=== PATIENT | male | born 1955 | race Hispanic/Latino ===

== ENCOUNTER 2017-05-24 16:14 | Observation (INO) | payer BC, OTHER ==
--- NOTE | 2017-05-24 16:50 | ED PDOC ---
HPI: Chest Pain Time Seen by Provider: 05/24/17 16:27 Chief Complaint (Nursing): Chest Pain Chief Complaint (Provider): "chest heaviness, shortness of breath" History Per: Patient History/Exam Limitations: no limitations Onset/Duration Of Symptoms: Days (4-5), Intermittent Episodes, Gradual Current Symptoms Are (Timing): Still Present Severity: Moderate Quality: Tightness, Other (heaviness) Associated Symptoms: Dyspnea. denies: Nausea, Diaphoresis Exacerbating Factors: Movement, Deep Breathing, Exertion Alleviating Factors: None Additional Complaint(s): 62yo male hx multiple medical problems including CAD s/p multiple stents presents c/o central chest pain/ "heaviness" associated with SOB/orthopnea and mild cough and dizziness. He states he did research online and concerned about his kidneys, notes his legs have been swollen for months to years, sleeps mostly sitting up as easier to breath that way. 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) - Home Medications Home Medications: Ambulatory Orders Medication Instructions Recorded Aspirin [Ecotrin] 81 mg PO DAILY 05/24/17 Atorvastatin [Lipitor] 40 mg PO DAILY 05/24/17 Fluticasone/Vilanterol [Breo 1 puff IH DAILY 05/24/17 Ellipta 200-25 Mcg INH] Furosemide [Lasix] 40 mg PO BID 05/24/17 Loratadine [Claritin] 10 mg PO DAILY 05/24/17 Metoprolol Succinate [Toprol XL] 25 mg PO DAILY 05/24/17 Potassium Chloride [K-Dur 20 mEq 20 meq PO BID 05/24/17 ER Tab] - Allergies Allergies/Adverse Reactions: Allergies Allergy/AdvReac Type Severity Reaction Status Date / Time Penicillins Allergy RASH Verified 05/24/17 16:18 Review of Systems ROS Statement: Except As Marked, All Systems Reviewed And Found Negative Constitutional: Positive for: Weakness. Negative for: Fever, Chills Cardiovascular: Positive for: Chest Pain, Palpitations, Orthopnea, Light Headedness Respiratory: Positive for: Cough, Shortness of Breath, SOB with Exertion Gastrointestinal: Negative for: Nausea, Vomiting, Abdominal Pain Genitourinary Male: Negative for: Dysuria, Frequency Musculoskeletal: Negative for: Neck Pain, Back Pain Skin: Negative for: Rash, Lesions, Jaundice Neurological: Positive for: Dizziness. Negative for: Weakness, Numbness Psych: Negative for: Anxiety Physical Exam - Reviewed Nursing Documentation Reviewed: Yes Vital Signs Reviewed: Yes - Physical Exam Appears: Positive for: Non-toxic (obese), No Acute Distress Head Exam: Positive for: ATRAUMATIC, NORMAL INSPECTION, NORMOCEPHALIC Skin: Positive for: Normal Color, Warm, DRY Eye Exam: Positive for: EOMI, Normal appearance, PERRL ENT: Positive for: Normal ENT Inspection Neck: Positive for: Normal, Painless ROM Cardiovascular/Chest: Positive for: Regular Rate, Rhythm Respiratory: Positive for: CNT, Normal Breath Sounds Gastrointestinal/Abdominal: Positive for: Bowel Sounds, Soft. Negative for: Tenderness, Guarding Back: Positive for: Normal Inspection Extremity: Positive for: Normal ROM, Swelling (b/l 3+ nonpitting edema) Neurologic/Psych: Positive for: Alert, Oriented - Laboratory Results Result Diagrams: 05/24/17 17:03 05/24/17 17:03 - ECG O2 Sat by Pulse Oximetry: 94 Medical Decision Making Medical Decision Making: workup initiated for chest pain with evidence of nonpitting LE edema Labs, CXR, LE duplex ordered CXR reviewed, +cardiomegaly per radiologist, atelectasis labs reviewed, trop neg, BNP normal Patient had persistent symptoms, recommended Obs tele admission d/w Dr Le covering [facility], arrangements made for obs admission. ASA ordered. Disposition - Clinical Impression Clinical Impression: Acute chest pain - Patient ED Disposition Is Patient to be Admitted: Yes - Disposition Disposition Time: 19:00 Condition: STABLE - Pt Status Changed To: Hospital Disposition Of: Observation - POA Present On Arrival: None
--- NOTE | 2017-05-24 17:08 | RAD ---
HISTORY: SOB COMPARISON: Chest x-ray performed 08/15/14 TECHNIQUE: Chest PA and lateral FINDINGS: Examination limited by habitus. LUNGS: Mild bibasilar atelectasis. No focal consolidation. Please note that chest x-ray has limited sensitivity for the detection of pulmonary masses. PLEURA: No significant pleural effusion identified. No definite pneumothorax . CARDIOVASCULAR: Cardiomegaly. OSSEOUS STRUCTURES: Osseous demineralization. Degenerative changes. Left 7th through 9th chronic appearing rib fractures. VISUALIZED UPPER ABDOMEN: Elevation of the right hemidiaphragm. OTHER FINDINGS: None. IMPRESSION: Mild bibasilar atelectasis. Cardiomegaly. Left 7th through 9th chronic appearing rib fractures.
[2017-05-24 17:10] LABS: BASO # 0.1 K/uL (0.0-0.2); BASO % 1.7 % (0.0-2.0); EOS # 0.2 K/uL (0.0-0.7); EOS % 2.8 % (0.0-4.0); HEMATOCRIT 42.8 % (35.0-51.0); LYMPH % 25.3 % (20.0-40.0); MEAN CELL VOLUME 90.5 fl (80.0-94.0); MEAN CORPUSCULAR HEMOGLOBIN 30.2 pg (27.0-31.0); MEAN CORPUSCULAR HGB CONC 33.4 g/dL (33.0-37.0); MEAN PLATELET VOLUME 8.7 fl (7.2-11.7); MONO # 0.6 K/uL (0.0-0.8); NEUT % 62.2 % (50.0-75.0); NRBC % 0.1 % (0.0-0.0); RED CELL DISTRIBUTION WIDTH 15.8 % (11.5-14.5); WHITE BLOOD COUNT 8.1 K/uL (4.8-10.8)
[2017-05-24 17:21] LABS: ALB/GLOB RATIO 1.3 (1.0-2.1); ALCOHOL SERUM < 10 mg/dl (0-10); ALKALINE PHOSPHATASE 61 U/L (38-126); ALT/SGPT 195 U/L (21-72); AST/SGOT 98 U/L (17-59); BILIRUBIN,TOTAL 0.5 mg/dl (0.2-1.3); BLOOD UREA NITROGEN 30 mg/dl (9-20); CALCIUM 10.4 mg/dL (8.4-10.2); CARBON DIOXIDE 26 mmol/L (22-30); CHLORIDE 106 mmol/L (98-107); GFR AFRICAN-AMERICAN > 60; GLUCOSE,RANDOM 117 mg/dL (75-110); PARTIAL THROMBOPLASTIN TIME 30.1 Seconds (25.6-37.1); POTASSIUM 4.2 MMOL/L (3.6-5.0); SODIUM 144 mmol/l (132-148); TOTAL PROTEIN 8.2 G/DL (6.3-8.2)
[2017-05-25 02:30] VITALS: TEMP 98
[2017-05-25 09:41] VITALS: RESP 16
--- NOTE | 2017-05-25 10:52 | US ---
PROCEDURE: Bilateral lower extremity venous duplex Doppler. HISTORY: LE edema COMPARISON: None available. TECHNIQUE: Bilateral common femoral, superficial femoral, popliteal and posterior tibial veins were evaluated. Flow was assessed with color Doppler, compressibility, assessment of phasic flow and augmentation response. FINDINGS: COMMON FEMORAL VEIN: Right CFV: Unremarkable. Left CFV: Unremarkable. SUPERFICIAL FEMORAL VEIN: Right SFV: Unremarkable. Left SFV: Unremarkable. POPLITEAL VEIN: Right Popliteal: Unremarkable. Left Popliteal: Unremarkable. POSTERIOR TIBIAL VEIN: Right PTV: Unremarkable. Left PTV: Unremarkable. OTHER FINDINGS: None. IMPRESSION: No evidence of deep vein or superficial vein thrombosis.
--- NOTE | 2017-05-25 11:10 | CP.PCM.HP ---
History of Present Illness - History of Present Illness History of Present Illness: 62yo male hx multiple medical problems including CAD s/p multiple stents presents c/o central chest pain/ "heaviness" associated with SOB/orthopnea and mild cough and dizziness. He states he did research online and concerned about his kidneys, notes his legs have been swollen for months to years, sleeps mostly sitting up as easier to breath that way. 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 Present on Admission - Present on Admission Any Indicators Present on Admission: Yes Review of Systems - Cardiovascular Cardiovascular: Chest Pain, Diaphoresis, Dyspnea. absent: As Per HPI, Acrocyanosis, Chest Pain at Rest, Chest Pain with Activity, Claudication, Dyspnea on Exertion, Edema, Irregular Heart Rhythm, Pain Radiating to Arm/Neck/ Jaw, Leg Edema, Leg Ulcers, Lightheadedness, Orthopnea, Palpitations, Paroxysmal Nocturnal Dyspnea, Pedal Edema, Radiating Pain, Rapid Heart Rate, Slow Heart Rate, Syncope, Other - Respiratory Respiratory: absent: As Per HPI, Cough, Dyspnea, Hemoptysis, Dyspnea on Exertion , Wheezing, Snoring, Stridor, Pain on Inspiration, Chest Congestion, Excessive Mucous Production, Change in Mucous Color, Pain with Coughing, Other Past Patient History - Past Social History Smoking Status: Former Smoker - CARDIAC Hx Hypertension: Yes - PULMONARY Hx Asthma: Yes - NEUROLOGICAL Hx Seizures: No - HEMATOLOGICAL/ONCOLOGICAL Hx Human Immunodeficiency Virus (HIV): No - GENITOURINARY/GYNECOLOGICAL Hx Sexually Transmitted Disorders: No - PSYCHIATRIC Hx Depression: Yes Hx Substance Use: No Meds Allergies/Adverse Reactions: Allergies Allergy/AdvReac Type Severity Reaction Status Date / Time Penicillins Allergy RASH Verified 05/24/17 16:18 Physical Exam - Head Exam Head Exam: ATRAUMATIC, NORMAL INSPECTION - Eye Exam Eye Exam: Normal appearance Pupil Exam: NORMAL ACCOMODATION - ENT Exam ENT Exam: Mucous Membranes Moist - Respiratory Exam Respiratory Exam: Decreased Breath Sounds, Clear to Auscultation Bilateral, Wheezes, NORMAL BREATHING PATTERN - Cardiovascular Exam Cardiovascular Exam: REGULAR RHYTHM - GI/Abdominal Exam GI & Abdominal Exam: Normal Bowel Sounds, Soft - Back Exam Back exam: NORMAL INSPECTION - Neurological Exam Neurological exam: CN II-XII Intact Results - Vital Signs Recent Vital Signs: Last Vital Signs Temp 98.0 F 05/25/17 07:30 Pulse 82 05/25/17 07:30 Resp 16 05/25/17 07:30 BP 145/79 05/25/17 07:30 Pulse Ox 99 05/25/17 07:30 - Labs Result Diagrams: 05/24/17 17:03 05/24/17 17:03 Labs: Laboratory Results - last 24 hr 05/24/17 05/24/17 05/24/17 17:03 17:03 17:03 WBC 8.1 RBC 4.73 Hgb 14.3 Hct 42.8 MCV 90.5 MCH 30.2 MCHC 33.4 RDW 15.8 H Plt Count 230 MPV 8.7 Neut % (Auto) 62.2 Lymph % (Auto) 25.3 [place] % (Auto) 8.0 Eos % (Auto) 2.8 Baso % (Auto) 1.7 Neut # 5.0 Lymph # 2.0 [place] # 0.6 Eos # 0.2 Baso # 0.1 PT 12.5 INR 1.1 APTT 30.1 Sodium 144 Potassium 4.2 Chloride 106 Carbon Dioxide 26 Anion Gap 16 BUN 30 H Creatinine 1.2 Est GFR ( Amer) > 60 Est GFR (Non-Af Amer) > 60 Random Glucose 117 H Calcium 10.4 H Total Bilirubin 0.5 AST 98 H ALT 195 H Alkaline Phosphatase 61 Troponin I < 0.0120 NT-Pro-B Natriuret Pep 45.4 Total Protein 8.2 Albumin 4.6 Globulin 3.6 Albumin/Globulin Ratio 1.3 Alcohol, Quantitative < 10 05/25/17 09:18 WBC RBC Hgb Hct MCV MCH MCHC RDW Plt Count MPV Neut % (Auto) Lymph % (Auto) [place] % (Auto) Eos % (Auto) Baso % (Auto) Neut # Lymph # [place] # Eos # Baso # PT INR APTT Sodium Potassium Chloride Carbon Dioxide Anion Gap BUN Creatinine Est GFR ( Amer) Est GFR (Non-Af Amer) Random Glucose Calcium Total Bilirubin AST ALT Alkaline Phosphatase Troponin I 0.0270 NT-Pro-B Natriuret Pep Total Protein Albumin Globulin Albumin/Globulin Ratio Alcohol, Quantitative Assessment & Plan - Assessment and Plan (Free Text) Assessment: 1. Chest pain r/o acs ekg noted pt sent by cardio 2. sob h/o asthma cont nebs 3. htn cont adrienne meds
[2017-05-25 11:11] VITALS: BP 136/84; PULSE 78
--- NOTE | 2017-05-25 11:17 | CP.PCM.DIS ---
Provider - Provider Date of Admission: 05/24/17 19:59 Attending physician: Cedric Schaefer MD Primary care physician: cedric schaefer MD Time Spent in preparation of Discharge (in minutes): 30 Hospital Course - Lab Results Lab Results: Most Recent Lab Values WBC 8.1 K/uL (4.8-10.8) 05/24/17 17:03 RBC 4.73 Mil/uL (4.40-5.90) 05/24/17 17:03 Hgb 14.3 g/dL (12.0-18.0) 05/24/17 17:03 Hct 42.8 % (35.0-51.0) 05/24/17 17: MCV 90.5 fl (80.0-94.0) 05/24/17 17: MCH 30.2 pg (27.0-31.0) 05/24/17 17: MCHC 33.4 g/dL (33.0-37.0) 05/24/17 17: RDW 15.8 % (11.5-14.5) H 05/24/17 17:03 Plt Count 230 K/uL (130-400) 05/24/17 17:03 MPV 8.7 fl (7.2-11.7) 05/24/17 17:03 Neut % (Auto) 62.2 % (50.0-75.0) 05/24/17 17:03 Lymph % (Auto) 25.3 % (20.0-40.0) 05/24/17 17:03 [place] % (Auto) 8.0 % (0.0-10.0) 05/24/17 17:03 Eos % (Auto) 2.8 % (0.0-4.0) 05/24/17 17:03 Baso % (Auto) 1.7 % (0.0-2.0) 05/24/17 17:03 Neut # 5.0 K/uL (1.8-7.0) 05/24/17 17:03 Lymph # 2.0 K/uL (1.0-4.3) 05/24/17 17:03 [place] # 0.6 K/uL (0.0-0.8) 05/24/17 17:03 Eos # 0.2 K/uL (0.0-0.7) 05/24/17 17:03 Baso # 0.1 K/uL (0.0-0.2) 05/24/17 17:03 PT 12.5 Seconds (9.8-13.1) 05/24/17 17:03 INR 1.1 (0.9-1.2) 05/24/17 17:03 APTT 30.1 Seconds (25.6-37.1) 05/24/17 17:03 Sodium 144 mmol/l (132-148) 05/24/17 17:03 Potassium 4.2 MMOL/L (3.6-5.0) 05/24/17 17:03 Chloride 106 mmol/L (98-107) 05/24/17 17:03 Carbon Dioxide 26 mmol/L (22-30) 05/24/17 17:03 Anion Gap 16 (10-20) 05/24/17 17:03 BUN 30 mg/dl (9-20) H 05/24/17 17:03 Creatinine 1.2 mg/dL (0.8-1.5) 05/24/17 17:03 Est GFR ( Amer) > 60 05/24/17 17:03 Est GFR (Non-Af Amer) > 60 05/24/17 17:03 Random Glucose 117 mg/dL (75-110) H 05/24/17 17:03 Calcium 10.4 mg/dL (8.4-10.2) H 05/24/17 17:03 Total Bilirubin 0.5 mg/dl (0.2-1.3) 05/24/17 17:03 AST 98 U/L (17-59) H 05/24/17 17:03 ALT 195 U/L (21-72) H 05/24/17 17:03 Alkaline Phosphatase 61 U/L (38-126) 05/24/17 17:03 Troponin I 0.0270 ng/mL (0.00-0.120) 05/25/17 09:18 NT-Pro-B Natriuret Pep 45.4 pg/ml (0-900) 05/24/17 17:03 Total Protein 8.2 G/DL (6.3-8.2) 05/24/17 17:03 Albumin 4.6 g/dL (3.5-5.0) 05/24/17 17:03 Globulin 3.6 gm/dL (2.2-3.9) 05/24/17 17:03 Albumin/Globulin Ratio 1.3 (1.0-2.1) 05/24/17 17:03 Alcohol, Quantitative < 10 mg/dl (0-10) 05/24/17 17:03 - Hospital Course Hospital Course: stable - Date & Time of H&P Date of H&P: 05/24/17 Discharge Exam - Head Exam Head Exam: ATRAUMATIC, NORMAL INSPECTION - Eye Exam Eye Exam: Normal appearance Pupil Exam: NORMAL ACCOMODATION - Respiratory Exam Respiratory Exam: NORMAL BREATHING PATTERN, UNREMARKABLE - Cardiovascular Exam Cardiovascular Exam: REGULAR RHYTHM - GI/Abdominal Exam GI & Abdominal Exam: Normal Bowel Sounds, Unremarkable - Rectal Exam Rectal Exam: NORMAL INSPECTION - Exam Exam: NORMAL INSPECTION - Extremities Exam Extremities exam: full ROM, normal inspection Discharge Plan - Follow Up Plan Condition: STABLE Disposition: HOME/ ROUTINE Additional Instructions: f/u cardio and pulm today
[2017-05-25 14:47] VITALS: O2SAT 94
[2017-05-25] MEDS ORDERED: Potassium Chloride 20 mEq ER Tab PO SCH (17:00)
--- NOTE | 2017-05-25 22:49 | CARD ---
APPROVED REPORT EKG Measurement Heart [id number] <Conclusion> Normal sinus rhythm Minimal voltage criteria for LVH, may be normal variant Cannot rule out Inferior infarct, age undetermined Abnormal ECG
[2017-05-26] MEDS ORDERED: Metoprolol Succinate 25 mg XL Tab PO SCH (09:00)
[2017-05-26] MEDS ORDERED: Patient's Own Med (Fluticasone/Vilanterol [Breo Ellipta 200-25 Mcg Inh] 1 PUFF) IH SCH (09:00)
== END 2017-05-25 11:05 | disposition left against medical advice (07) ==
LOC: H.ER 16:14 → H.ERHOLD 19:59
PROVIDERS: ADMIT Family Medicine; ATTEND Family Medicine
DX: R07.89 Other chest pain (principal); I10 Essential (primary) hypertension; I25.10 Atherosclerotic heart disease of native coronary artery without angina pectoris; J45.909 Unspecified asthma, uncomplicated; Z79.82 Long term (current) use of aspirin; Z87.891 Personal history of nicotine dependence; Z95.5 Presence of coronary angioplasty implant and graft; Z88.0 Allergy status to penicillin
CPT/HCPCS: 71020; 80053; 80320; 83880; 84484; 85025; 85610; 85730; 93005; 93970; 99285; G0378

== ENCOUNTER 2017-10-04 23:15 | Emergency (ER) | payer OTHER ==
[2017-10-04 23:30] VITALS: PULSE 98; TEMP 98.1
[2017-10-05 00:11] LABS: ABG ALLEN TEST YES; ARTERIAL BLOOD GAS HCO3 24.9 mmol/L (21-28); ARTERIAL BLOOD GAS HEMOGLOBIN 12.5 g/dL (11.7-17.4); ARTERIAL BLOOD GAS O2 CAPACITY 16.8 mL/dL (16-24); ARTERIAL BLOOD GAS O2 CONTENT 16.5 ML/dL (15-23); ARTERIAL BLOOD GAS O2 SAT 98.5 % (95-98); ARTERIAL BLOOD GAS PCO2 39 mm/Hg (35-45); ARTERIAL BLOOD GAS PH 7.41 (7.35-7.45); ARTERIAL BLOOD GAS PO2 71 mm/Hg (80-100); ARTERIAL BLOOD GAS TCO2 25.9 mmol/L (22-28)
[2017-10-05] MEDS ORDERED: Albuterol-Ipratrop 3 mg / 0.5 (3 ml) UD INH STA ×2 (00:24→00:27)
[2017-10-05] MEDS ORDERED: Albuterol-Ipratrop 3 mg / 0.5 (3 ml) UD ONE (00:44)
[2017-10-05 01:49] VITALS: BP 135/68; RESP 15; O2SAT 96
--- NOTE | 2017-10-05 02:14 | ED PDOC ---
HPI: SOB/CHF/COPD Time Seen by Provider: 10/04/17 23:36 Chief Complaint (Nursing): Shortness Of Breath Chief Complaint (Provider): Shortness of Breath History Per: Patient History/Exam Limitations: no limitations Onset/Duration Of Symptoms: Mins (x30 minutes) Current Symptoms Are (Timing): Better Current Respiratory Medications: See Home Med List Associated Symptoms: Light-headedness. denies: Chest Pain Additional Complaint(s): 62 year old male presents to ED with complaints of SOB and lightheadedness x30 minutes and has a past medical history of COPD. Patient states he was sitting in his car with the ignition on when he suddenly felt lightheaded. (-) chest pain, nausea, vomiting, or diaphoresis. Confirms feeling better after walking in the fresh air outside his care. PCP: Zach Ramirez Past Medical History Reviewed: Historical Data, Nursing Documentation, Vital Signs Vital Signs: Last Vital Signs Temp 98.1 F 10/04/17 23:23 Pulse 98 H 10/05/17 01:30 Resp 15 10/05/17 01:30 BP 135/68 10/05/17 01:30 Pulse Ox 96 10/05/17 01:30 - Medical History PMH: Asthma, Depression, HTN Denies: Diabetes, Hepatitis, HIV, Seizures, Sexually Transmitted Disease - Family History Family History: States: Unknown Family Hx - Social History Current smoker - smoking cessation education provided: No Ex-Smoker (has not smoked in the last 12 months): No Alcohol: None Drugs: Denies - Home Medications Home Medications: Ambulatory Orders Medication Instructions Recorded Aspirin [Ecotrin] 81 mg PO DAILY 05/24/17 Atorvastatin [Lipitor] 40 mg PO DAILY 05/24/17 Fluticasone/Vilanterol [Breo 1 puff IH DAILY 05/24/17 Ellipta 200-25 Mcg INH] Furosemide [Lasix] 40 mg PO BID 05/24/17 Loratadine [Claritin] 10 mg PO DAILY 05/24/17 Metoprolol Succinate [Toprol XL] 25 mg PO DAILY 05/24/17 Potassium Chloride [K-Dur 20 mEq 20 meq PO BID 05/24/17 ER Tab] - Allergies Allergies/Adverse Reactions: Allergies Allergy/AdvReac Type Severity Reaction Status Date / Time erythromycin base Allergy VOMITING Verified 10/04/17 23:28 Penicillins Allergy RASH Verified 10/04/17 23:28 Curb-65 Severity Score - CURB-65 Severity Score Confusion: No Respiratory Rate greater than/equal to 30: No Systolic BP <90 or Diastolic BP less than/equal 60mmHg: No Age >64: No Curb-65 Score: 0 Percentage 30-day mortality: 0.6% Review of Systems ROS Statement: Except As Marked, All Systems Reviewed And Found Negative Constitutional: Negative for: Sweats Cardiovascular: Negative for: Chest Pain Respiratory: Positive for: Shortness of Breath Gastrointestinal: Negative for: Nausea, Vomiting Neurological: Positive for: Other ((+) lightheadedness) Physical Exam - Reviewed Nursing Documentation Reviewed: Yes Vital Signs Reviewed: Yes - Physical Exam Appears: Positive for: Non-toxic, No Acute Distress Skin: Positive for: Normal Color, Warm, Dry Eye Exam: Positive for: Normal appearance ENT: Positive for: Normal ENT Inspection Cardiovascular/Chest: Positive for: Regular Rate, Rhythm. Negative for: Bradycardia Respiratory: Positive for: Wheezing (trace expiratory wheezing in the bases bilaterally). Negative for: Normal Breath Sounds, Respiratory Distress Gastrointestinal/Abdominal: Positive for: Soft. Negative for: Tenderness Neurologic/Psych: Positive for: Alert, Oriented. Negative for: Motor/Sensory Deficits - ECG O2 Sat by Pulse Oximetry: 96 (RA) Pulse Ox Interpretation: Normal Medical Decision Making Medical Decision Makin Initial impression: weakness in setting of possible carbon monoxide exposure Initial plan: * ABG * Labs * Duonebs 3mL INH x2 * Peak flow pre/post Tx x2 * Re-eval 0100 Upon re-evaluation, patient notes improvement in symptoms after duoneb treatments. Patient is stable for discharge home. Condition: improved Scribe Attestation: Documented by Michelle Edwards acting as a scribe Juancarlos Odom MD. Scribe Attestation: All medical record entries made by the Scribe were at my direction and personally dictated by me. I have reviewed the chart and agree that the record accurately reflects my personal performance of the history, physical exam, medical decision making, and the department course for this patient. I have also personally directed, reviewed, and agree with the discharge instructions and disposition. Disposition - Clinical Impression Clinical Impression: Dizziness, COPD (chronic obstructive pulmonary disease) - Disposition Disposition: Routine/Home Disposition Time: 01:00 Condition: IMPROVED Instructions: Chronic Obstructive Pulmonary Disease (COPD), Including Emphysema Forms: [employer] ([place])
--- NOTE | 2017-10-05 09:59 | CARD ---
APPROVED REPORT EKG Measurement Heart [id number] <Conclusion> Sinus tachycardia Left axis deviation Moderate voltage criteria for LVH, may be normal variant Borderline ECG
== END 2017-10-05 01:30 | disposition home or self-care (01) ==
LOC: H.ER 23:15
DX: J44.9 Chronic obstructive pulmonary disease, unspecified (principal); Z88.0 Allergy status to penicillin; Z88.1 Allergy status to other antibiotic agents; I10 Essential (primary) hypertension; Z79.82 Long term (current) use of aspirin; F32.9 Major depressive disorder, single episode, unspecified